=== PATIENT | female | born 1965 | race Two or more races ===

== ENCOUNTER 2021-10-22 07:40 | Day surgery (SDC) | payer OTHER ==
[~2021-10-22] VITALS: Ht 167.6 cm; Wt 102.1 kg
[~2021-10-22 07:40] MED LIST: ZESTRIL2.5 MG PO
== END 2021-10-22 17:20 | disposition home or self-care (01) ==
LOC: CIR.AMB 07:40
PROVIDERS: ATTEND Obstetrics & Gynecology
DX: D12.9 Benign neoplasm of anus and anal canal (principal); Z86.010 Personal history of colon polyps; Z20.822 Contact with and (suspected) exposure to COVID-19; K64.1 Second degree hemorrhoids; K60.3 Anal fistula

== ENCOUNTER 2021-12-19 09:15 | Inpatient (IN) | payer OTHER ==
[~2021-12-19] VITALS: Ht 167.6 cm; Wt 102.1 kg
== END 2021-12-30 10:57 | disposition home or self-care (01) | DRG 739 ==
LOC: ADM 09:15 → EDSTATUS 09:15 → O/R 12-24 07:07 → OB/GYN 12-24 09:15 → SURG 12-24 22:30
PROVIDERS: Surgery; Urology; ADMIT Specialist; ATTEND Specialist
PROC: 0UT20ZZ Resection of Bilateral Ovaries, Open Approach (ICD-10-PCS; 2021-12-24)
PROC: 0DBW0ZZ Excision of Peritoneum, Open Approach (ICD-10-PCS; 2021-12-24)
PROC: 0DTN0ZZ Resection of Sigmoid Colon, Open Approach (ICD-10-PCS; 2021-12-24)
PROC: 0DBP0ZZ Excision of Rectum, Open Approach (ICD-10-PCS; 2021-12-24)
PROC: 0DNL0ZZ Release Transverse Colon, Open Approach (ICD-10-PCS; 2021-12-24)
PROC: 0DJD8ZZ Inspection of Lower Intestinal Tract, Via Natural or Artificial Opening Endoscopic (ICD-10-PCS; 2021-12-24)
PROC: 0TSB0ZZ Reposition Bladder, Open Approach (ICD-10-PCS; 2021-12-24)
PROC: 0UT90ZZ Resection of Uterus, Open Approach (ICD-10-PCS; principal; 2021-12-24 10:30)
PROC: 07BC0ZZ Excision of Pelvis Lymphatic, Open Approach (ICD-10-PCS; 2021-12-24 10:30)
PROC: 0UT70ZZ Resection of Bilateral Fallopian Tubes, Open Approach (ICD-10-PCS; 2021-12-24 10:30)
DX: C54.1 Malignant neoplasm of endometrium (principal); S35 Injury of blood vessels at abdomen, lower back and pelvis level; C19 Malignant neoplasm of rectosigmoid junction; C79.62 Secondary malignant neoplasm of left ovary; N99.71 Accidental puncture and laceration of a genitourinary system organ or structure during a genitourinary system procedure; K57.32 Diverticulitis of large intestine without perforation or abscess without bleeding; C77.5 Secondary and unspecified malignant neoplasm of intrapelvic lymph nodes; D25.1 Intramural leiomyoma of uterus; D25.2 Subserosal leiomyoma of uterus; Z20.822 Contact with and (suspected) exposure to COVID-19; S38 Crushing injury and traumatic amputation of abdomen, lower back, pelvis and external genitals; Y92.234 Operating room of hospital as the place of occurrence of the external cause

== ENCOUNTER 2025-01-20 09:50 | Emergency (ER) | payer OTHER ==
[~2025-01-20] VITALS: Ht 167.6 cm; Wt 113.4 kg
[2025-01-20] MEDS ORDERED: FAMOTIDINE/PF 20 MG/2 ML VIAL IV ONE (11:15)
[2025-01-20] MEDS ORDERED: 0.9 % SODIUM CHLORIDE 1,000 ML IV SCH (11:15)
[2025-01-20] MEDS ORDERED: CEFTRIAXONE SODIUM 1,000 MG VIAL IV ONE (11:15)
[2025-01-20] MEDS ORDERED: KETOROLAC TROMETHAMINE 15 MG VIAL IU ONE (11:15)
[2025-01-20] MEDS ORDERED: KETOROLAC TROMETHAMINE 30 MG VIAL ONE (11:25)
[2025-01-20] MEDS ORDERED: CEFTRIAXONE SODIUM 1,000 MG VIAL ONE (11:26)
[2025-01-20] MEDS ORDERED: FAMOTIDINE/PF 20 MG/2 ML VIAL ONE (11:26)
[2025-01-20 12:09] LABS: BASO % 0.2 % (0.1-1.2); EOS # 0.12 (0.04-0.54); EOS % 1.2 % (0.7-7.0); LYMPH # 2.62 (1.18-3.74); LYMPH % 25.4 % (19.3-53.1); MEAN PLATELET VOLUME 10.10 fl (9.4-12.4); MONO # 0.75 (0.24-0.82); MONO % 7.3 % (4.7-12.5); NEUT # 6.76 (1.56-6.13); NEUT % 65.6 % (34.0-71.1); RED CELL DISTRIBUTION WIDTH 14.2 % (11.6-14.4)
[2025-01-20 12:34] LABS: URINE APPEARANCE Clear; URINE BILIRRUBIN Negative (NEGATIVE); URINE BLOOD Trace; URINE COLOR Yellow; URINE GLUCOSE Negative (NEGATIVE); URINE KETONE Negative (NEGATIVE); URINE LEUKOCYTE Small; URINE NITRATE Negative; URINE PROTEIN Negative (NEGATIVE); URINE UROBILINOGEN 0.2 E.U./dl
[2025-01-20 12:38] LABS: URINE BACTERIA 2074.8 uL (0.0-1933); URINE EPITHELIAL CELLS 10.3 uL (0.0-38.8); URINE RBC 14.0 uL (0.0-20.8); URINE WBC 540.9 uL (0.0-23.2)
[2025-01-20 12:46] LABS: URINE CAST 0.14 uL (0.0-1.40)
[2025-01-20 12:47] LABS: ALT/SGPT 21.0 U/L (12-78); AST/SGOT 16.0 U/L (15-37); BILIRUBIN TOTAL 0.29 mg/dL (0.3-1.2); BUN CREA RATIO 37.0 (7.0-25.0); CREATININE SERUM 0.67 mg/dL (0.55-1.02); GFR 89.78; GLOBULINA 4.0 G/DL (2.4-3.5); GLUCOSE FASTING 99.0 mg/dL (65-100); OSMOLALITY SERUM 291.0 MOSM/KG (275-295)
[2025-01-20 13:29] LABS: ERYTHROCYTE SEDIMENTATION RATE 36 mm/hr (0-30)
[2025-01-20] MEDS ORDERED: BACTRIM DS TAB1 EACH PO (13:55)
== END 2025-01-20 14:16 | disposition home or self-care (01) ==
LOC: ER 09:50
PROVIDERS: Student in an Organized Health Care Education/Training Program
DX: N39.0 Urinary tract infection, site not specified (principal); Z85.3 Personal history of malignant neoplasm of breast; Z85.41 Personal history of malignant neoplasm of cervix uteri